=== PATIENT | male | born 1940 | race Caucasian/White ===

== ENCOUNTER → 2016-07-10 | Outpatient (REF) | payer MEDICARE ==
[2016-07-10 12:05] LABS: ALBUMIN/GLOBULIN RATIO 1.21 (1.00-1.93); ALKALINE PHOSPHATASE 64 U/L (45-117); ALT/SGPT 24 U/L (12-78); ANION GAP 8 MEQ/L (8-16); AST/SGOT 15 U/L (15-37); BILIRUBIN,TOTAL 0.6 MG/DL (0.2-1.0); BLOOD UREA NITROGEN 17 MG/DL (7-18); CARBON DIOXIDE LEVEL 29 MEQ/L (21-32); CHLORIDE LEVEL 103 MEQ/L (98-107); CHOLESTEROL LEVEL 183 MG/DL (<200); CREATININE FOR GFR 0.99 MG/DL (0.70-1.30); GLOMERULAR FILTRATION RATE > 60.0 (>42); GLUCOSE, FASTING 109 MG/DL (83-110); POTASSIUM SERUM 4.2 MEQ/L (3.5-5.1); SODIUM LEVEL 140 MEQ/L (136-145); TOTAL PROTEIN 7.3 GM/DL (6.4-8.2); TRIGLYCERIDES LEVEL 79 MG/DL (<150)
== END ==
LOC: M SFHCLERA 08:23
PROVIDERS: ATTEND Physician Assistant
DX: I10 Essential (primary) hypertension (principal); R73.01 Impaired fasting glucose; E78.2 Mixed hyperlipidemia; N52.8 Other male erectile dysfunction; E03.9 Hypothyroidism, unspecified
CPT/HCPCS: 80053; 80061; 83036; 84443; G0103

== ENCOUNTER → 2016-12-17 | Outpatient (REF) | payer MEDICARE ==
[2016-12-17 11:48] LABS: MEAN CORPUSCULAR HEMOGLOBIN 30.9 pg (27.0-33.0); MEAN CORPUSCULAR HGB CONC 34.7 g/dl (32.0-36.5); MEAN CORPUSCULAR VOLUME 89.1 fl (80.0-96.0); RED CELL DISTRIBUTION WIDTH 12.8 % (11.5-14.5); WHITE BLOOD COUNT 5.3 K/mm3 (4.0-10.0)
[2016-12-17 11:58] LABS: ALBUMIN 3.7 GM/DL (3.2-5.2); ALBUMIN/GLOBULIN RATIO 1.06 (1.00-1.93); ALKALINE PHOSPHATASE 57 U/L (45-117); ALT/SGPT 27 U/L (12-78); ANION GAP 5 MEQ/L (8-16); AST/SGOT 14 U/L (15-37); BILIRUBIN,TOTAL 0.5 MG/DL (0.2-1.0); BLOOD UREA NITROGEN 14 MG/DL (7-18); CALCIUM LEVEL 8.9 MG/DL (8.8-10.2); CARBON DIOXIDE LEVEL 30 MEQ/L (21-32); CHLORIDE LEVEL 105 MEQ/L (98-107); CHOLESTEROL LEVEL 180 MG/DL (<200); CREATININE FOR GFR 1.03 MG/DL (0.70-1.30); GLOMERULAR FILTRATION RATE > 60.0 (>42); GLUCOSE, FASTING 106 MG/DL (83-110); POTASSIUM SERUM 4.5 MEQ/L (3.5-5.1); SODIUM LEVEL 140 MEQ/L (136-145); TOTAL PROTEIN 7.2 GM/DL (6.4-8.2); TRIGLYCERIDES LEVEL 87 MG/DL (<150)
== END ==
LOC: M SFHCLERA 08:03
PROVIDERS: ATTEND Physician Assistant
DX: I10 Essential (primary) hypertension (principal); R73.01 Impaired fasting glucose; E78.2 Mixed hyperlipidemia; E03.9 Hypothyroidism, unspecified

== ENCOUNTER 2018-06-10 11:16 | Inpatient (IN) | payer MEDICARE ==
[2018-06-10] VITALS (9 sets, daily range): BP systolic 131–145; BP diastolic 62–73; O2SAT 92–97
[~2018-06-10] VITALS: Ht 175.3 cm; Wt 88.8 kg
[2018-06-10] MEDS ORDERED: LEVO75TA4 PO (11:47)
[2018-06-10] MEDS ORDERED: CIAL5TAB (11:48)
[2018-06-10] MEDS ORDERED: TAMS1CAP17 PO (11:48)
[2018-06-10] MEDS ORDERED: AMLO5TAB6 PO (11:48)
[2018-06-10] MEDS ORDERED: PANT40TA3 PO (11:48)
[2018-06-10] MEDS ORDERED: SIMV40TA2 PO (11:48)
[2018-06-10] MEDS ORDERED: DULO1CAP3 PO (11:48)
[2018-06-10] MEDS ORDERED: ASPI81TA85 PO (11:48)
--- NOTE | 2018-06-10 11:49 | REP ---
CT Head without contrast HISTORY: Altered mental status COMPARISON: None Areas of decreased attenuation are present in the periventricular white matter. This represents small-vessel ischemic disease. There is no intraparenchymal hemorrhage, acute infarct, mass or midline shift. The ventricular system and cortical sulci are dilated consistent with minimal volume loss. There is no extra cerebral collection. There is no fracture. The visualized sinuses are clear. IMPRESSION: 1. Small vessel ischemic disease. 2. Minimal volume loss. Electronically Signed by Stephen Mcfarlane MD 06/10/2018 11:41 A
[2018-06-10 12:14] LABS: BASO % 0.4 % (0.0-1.0); EOS # 0.3 10^3/uL (0.0-0.50); EOS % 4.1 % (0.0-3.0); HEMATOCRIT 43.1 % (42.0-52.0); HEMOGLOBIN 14.9 g/dl (13.5-17.5); LYMPH # 1.6 10^3/uL (1.5-4.5); LYMPH % 22.3 % (24.0-44.0); MEAN CORPUSCULAR HEMOGLOBIN 29.9 pg (27.0-33.0); MEAN CORPUSCULAR HGB CONC 34.6 g/dl (32.0-36.5); MEAN CORPUSCULAR VOLUME 86.4 fl (80.0-96.0); MONO # 0.7 10^3/uL (0.0-0.8); MONO % 9.5 % (0.0-5.0); NEUTROPHILS # 4.5 10^3/uL (1.8-7.7); NEUTROPHILS % 63.3 % (36.0-66.0); PLATELET COUNT, AUTOMATED 210 10^3/uL (150-450); RED BLOOD COUNT 4.99 10^6/uL (4.30-6.10); WHITE BLOOD COUNT 7.2 10^3/uL (4.0-10.0)
[2018-06-10 12:26] LABS: PROTHROMBIN TIME 13.3 SECONDS (12.1-14.4)
[2018-06-10 12:27] LABS: PARTIAL THROMBOPLASTIN TIME 28.2 SECONDS (25.4-37.6)
[2018-06-10 12:42] LABS: BLOOD UREA NITROGEN 17 MG/DL (7-18); CALCIUM LEVEL 9.2 MG/DL (8.8-10.2); CARBON DIOXIDE LEVEL 28 MEQ/L (21-32); CHLORIDE LEVEL 96 MEQ/L (98-107); CPK CREATINE PHOSPHOKINASE 166 U/L (39-308); CREATININE FOR GFR 1.09 MG/DL (0.70-1.30); GLOMERULAR FILTRATION RATE > 60.0 (>42); GLUCOSE, FASTING 113 MG/DL (70-100); MB/CK RELATIVE INDEX 2.35 (< OR =4); POTASSIUM SERUM 3.8 MEQ/L (3.5-5.1); SODIUM LEVEL 134 MEQ/L (136-145); TROPONIN I < 0.02 NG/ML (< 0.10)
--- NOTE | 2018-06-10 13:39 | REP ---
PORTABLE CHEST X-RAY: Single view. HISTORY: CVA. COMPARISON CHEST X-RAY: March 12, 2015. FINDINGS: EKG monitoring electrodes overlie the chest. There is some linear fibrosis in the left lateral pleural angle. Heart is not enlarged. Pulmonary vasculature is not increased. The aorta is calcific. IMPRESSION: Minimal linear fibrosis left base laterally. Otherwise no acute disease. Electronically Signed by Christopher Keys MD 06/10/2018 05:05 P
[2018-06-10] MEDS ORDERED: ONDANSETRON 4MG/2ML VIAL (J2405) IV PRN (15:15)
[2018-06-10] MEDS ORDERED: ACETAMINOPHEN TAB 650MG DOSE (2X325MG) PO PRN (15:15)
--- NOTE | 2018-06-10 15:38 | REP ---
MR BRAIN WITHOUT CONTRAST: HISTORY: TIA. COMPARISON: CT 06/10/2018. Scattered punctate areas of increased signal intensity on T2-weighted images are present in the periventricular and subcortical white matter and nona. This represents small vessel ischemic disease. There is no intraparenchymal hemorrhage, infarct, mass or midline shift. The ventricular system and cortical sulci are dilated consistent with minimal volume loss. There is no extracerebral collection. The sinuses are clear. IMPRESSION: 1. Minimal small vessel ischemic disease. 2. Minimal volume loss. Electronically Signed by Stephen Mcfarlane MD 06/10/2018 03:41 P
[2018-06-10] MEDS: ASPIRIN 325 MG TAB PO SCH (16:42)
[2018-06-10] MEDS ORDERED: PROHANCE 279.3MG/ML 5ML VIAL (A9576) As Ordered ONE (17:29)
[2018-06-10] MEDS ORDERED: PROHANCE 279.3MG/ML 15ML VIAL (A9576) As Ordered ONE (17:30)
[2018-06-10 17:35] LABS: C REACTIVE PROTEIN QUANTITATIV < 0.30 MG/DL (0.00-0.30); CPK CREATINE PHOSPHOKINASE 195 U/L (39-308); MB/CK RELATIVE INDEX 2.82 (< OR =4); TROPONIN I < 0.02 NG/ML (< 0.10)
[2018-06-10 17:42] LABS: THYROID STIMULATING HORMONE 1.32 uIU/ML (0.358-3.740); THYROXINE (T4) 10.6 UG/DL (4.5-12.0)
--- NOTE | 2018-06-10 18:39 | HPE ---
DATE OF ADMISSION: 06/10/2018 PRIMARY CARE PROVIDER: Chandrakant Wells NEUROLOGIST: Dr. Ceja CHIEF COMPLAINT: Amnesia, aphasia. HISTORY OF THE PRESENT ILLNESS: This is a 78-year-old male patient with underlying medical history of gastroesophageal reflux disease (GERD), hypothyroidism, hypertension, dyslipidemia, erectile dysfunction, obstructive sleep apnea, depression, presented this morning. The patient was doing woodwork and also going to the [facility] to do a workout but was noted that he was not able to remember things, having trouble talking to his friends, and almost did not remember his 's name but knows that the person is his but cannot express her name. Symptoms started around 9:30 in the morning, subsequently was encouraged by patient's to come to the emergency room. Patient reported mild left-sided eye and frontal headache, worse with sitting up, relieved with lying down and no other complaints. No vision change. Mild cough. Patient reported coughing also makes the headache worse. Denies any chest pain, pressure, discomfort. No other focal neurological deficit. No vision change, hearing change. No trouble swallowing. He is almost back to baseline with only minimum headache when sitting up. ALLERGIES: No known drug allergies. PAST MEDICAL HISTORY: See above. PAST SURGICAL HISTORY: Inguinal hernia repair times two. SOCIAL HISTORY: Quit smoking 15 years ago, one pack per day for 18 years. Drinks one vodka per day but has never had a problem with withdrawal in the past. No illicit drug use. FAMILY HISTORY: Noncontributory. Does not remember his family history. REVIEW OF SYSTEMS: Negative except for those mentioned in the history of the present illness. HOME MEDICATIONS: - Norvasc 5 mg by mouth daily - aspirin 81 mg by mouth daily - duloxetine 60 mg by mouth daily - Synthroid 75 mcg by mouth daily - Protonix 40 mg by mouth daily - Zocor 40 mg by mouth nightly - Flomax 0.8 mg by mouth daily PHYSICAL EXAMINATION: VITAL SIGNS: Temperature 98.3, pulse 76, respirations 17, blood pressure 144/70, pulse oximetry 97% on room air. GENERAL: Patient alert, comfortable, in no acute distress. HEENT: Normocephalic, atraumatic. PULMONARY: Bilaterally clear. CARDIAC: Regular, S1, S2. ABDOMEN: Soft, nontender. Positive bowel sounds. EXTREMITIES: No clubbing, cyanosis, or edema. NEUROLOGIC: Cranial nerves II-XII grossly intact. Bilateral upper and lower extremities 5/5 strength. Sensation to light touch intact, iajzsy-[id number] bilaterally intact. No focal neurological deficit appreciated. LABORATORY: WBC 7.2, hemoglobin and hematocrit 14.9 over 43.1, platelets 120. Chemistry: Sodium 134, potassium 3.8, chloride 96, bicarbonate 28, BUN 17, creatinine 1.09. Cardiac enzymes negative times two. CRP negative. TSH within normal limits. ASSESSMENT AND PLAN: This is a 78-year-old male patient with underlying medical history of gastroesophageal reflux disease, hypothyroidism, hypertension, dyslipidemia, erectile dysfunction, questionable obstructive sleep apnea, depression, presented with aphasia, questionable amnesia, likely secondary to transient ischemic attack (TIA). PROBLEMS: 1. Aphasia, questionable amnesia. Likely secondary to TIA. Case discussed with Dr. Ceja, neurologist. Escalate aspirin to 325 mg. Continue statin. Monitor blood pressure, permissive hypertension. Holding Norvasc at this time. Followup CRP, ESR, MRI of the brain, MRA of the brain, MRA of the neck, echocardiogram, neurologic checks, serial cardiac enzymes. Further recommendation as per neurology. Physical therapy has been ordered. 2. Hypertension. Permissive hypertension. Holding Norvasc. Will monitor clinically. 3. Obstructive sleep apnea. Obstructive sleep apnea (JANETT) protocol. Patient not on continuous positive airway pressure (CPAP) at home. 4. Gastroesophageal reflux disease. Continue proton pump inhibitor (PPI). 5. Patient drinks alcohol, one vodka per day. No history of withdrawal but will monitor clinically. Thiamine, folate, multivitamin. 6. Deep vein thrombosis (DVT) prophylaxis. Heparin subcu. 7. Depression. Continue current medication. DISPOSITION: Pending clinical improvement, will likely discharge in the next 24-48 hours.
--- NOTE | 2018-06-10 19:43 | REPVR ---
EXAM: MR Angiography Neck Without and With Contrast EXAM DATE/TIME: 06/10/2018 5:43 PM CLINICAL HISTORY: 78 years old, male; Signs and symptoms; Memory loss; Type not specified; Additional info: CVA TECHNIQUE: Magnetic resonance angiography images of the neck without and with intravenous contrast. COMPARISON: MRA BRAIN W/O CONTRAST 06/10/2018 2:39 PM FINDINGS: Right common carotid artery: Normal. No significant stenosis. No dissection or occlusion. Right internal carotid artery: Normal. Extracranial segment is patent with no significant stenosis. No dissection or occlusion. Right external carotid artery: Normal. No significant stenosis. No dissection or occlusion. Right vertebral artery: Normal. No significant stenosis. No dissection or occlusion. Left common carotid artery: Normal. No significant stenosis. No dissection or occlusion. Left internal carotid artery: Normal. Extracranial segment is patent with no significant stenosis. No dissection or occlusion. Left external carotid artery: Normal. No significant stenosis. No dissection or occlusion. Left vertebral artery: Left vertebral artery demonstrates heterogeneous multifocal moderate to severe irregular stenosis along its entire course. Findings are nonspecific and could reflect severe atherosclerotic disease, vasculitis, dissection, or other etiologies. Clinical correlation recommended. IMPRESSION: Left vertebral artery demonstrates heterogeneous multifocal moderate to severe irregular stenosis along its entire course. Findings are nonspecific and could reflect severe atherosclerotic disease, vasculitis, dissection, or other etiologies. Clinical correlation recommended. COMMENT: Reference per NASCET criteria for degree of stenosis: Mild: <50% stenosis. Moderate: 50-69% stenosis. Severe: 70-94% stenosis. Near occlusion: 95-99% stenosis. Electronically signed by: Maximiliano Ray On 06/10/2018 19:42:33 PM
[2018-06-10] MEDS: DOCUSATE SODIUM 100 MG CAP PO SCH (20:30)
[2018-06-10] MEDS: SIMVASTATIN 40 MG TAB PO SCH (20:30)
[2018-06-10] MEDS: HEPARIN SOD (PORCINE) 5000 UNITS/ML VIAL SC SCH (20:30)
--- NOTE | 2018-06-10 21:56 | REP ---
MRA BRAIN WITHOUT CONTRAST: HISTORY: TIA. 3D TOF MR angiography was performed at the level of the [place]. There is no aneurysm, arteriovenous malformation or atherosclerotic lesion. There is origin of the right posterior cerebral artery. Major intracranial vessels are patent. The right vertebral artery is dominant. The left vertebral artery is very hypoplastic. IMPRESSION: Normal MRA brain. Electronically Signed by Stephen Mcfarlane MD 06/11/2018 08:32 A
[2018-06-10 23:45] LABS: CPK CREATINE PHOSPHOKINASE 196 U/L (39-308); MB/CK RELATIVE INDEX 2.04 (< OR =4); TROPONIN I < 0.02 NG/ML (< 0.10)
[2018-06-11] VITALS (16 sets, daily range): BP systolic 112–159; BP diastolic 65–79; O2SAT 92–95
[2018-06-11 05:14] LABS: HEMATOCRIT 40.2 % (42.0-52.0); HEMOGLOBIN 13.7 g/dl (13.5-17.5); MEAN CORPUSCULAR HEMOGLOBIN 29.7 pg (27.0-33.0); MEAN CORPUSCULAR HGB CONC 34.1 g/dl (32.0-36.5); MEAN CORPUSCULAR VOLUME 87.2 fl (80.0-96.0); PLATELET COUNT, AUTOMATED 205 10^3/uL (150-450); RED BLOOD COUNT 4.61 10^6/uL (4.30-6.10)
[2018-06-11 05:43] LABS: BLOOD UREA NITROGEN 19 MG/DL (7-18); CALCIUM LEVEL 8.8 MG/DL (8.8-10.2); CARBON DIOXIDE LEVEL 29 MEQ/L (21-32); CHLORIDE LEVEL 102 MEQ/L (98-107); CHOLESTEROL LEVEL 187 MG/DL (<200); CHOLESTEROL RISK RATIO 3.169 (<5); CREATININE FOR GFR 1.18 MG/DL (0.70-1.30); GLOMERULAR FILTRATION RATE > 60.0 (>42); GLUCOSE, FASTING 116 MG/DL (70-100); HDL CHOLESTEROL 59 MG/DL (>40); LDL CHOLESTEROL 107 MG/DL (<100); MAGNESIUM LEVEL 2.2 MG/DL (1.8-2.4); NON-HDL-C 128 MG/DL; POTASSIUM SERUM 4.3 MEQ/L (3.5-5.1); SODIUM LEVEL 137 MEQ/L (136-145); TRIGLYCERIDES LEVEL 104 MG/DL (<150)
[2018-06-11] MEDS: LEVOTHYROXINE 75MCG TABLET (0.075MG) PO SCH (05:46)
[2018-06-11] MEDS ORDERED: ASPIRIN 81 MG ENTERIC TAB PO SCH (09:00)
--- NOTE | 2018-06-11 09:00 | ECGEPIP ---
Stationary ECG Study [facility] - ED Test Date: 2018-06-10 Pat Name: KARISSA POWELL Department: Room: - Gender: M Cashier Wrapper: desiree : 1940 Requested By: Michele Kelly Order Number: [id number] Reading MD: Bebe Quintana Measurements Intervals [place] Rate: 78 P: 58 NV: 196 QRS: -2 QRSD: 102 T: 32 QT: 385 QTc: 440 Interpretive Statements SINUS RHYTHM WITH OCCASIONAL VENTRICULAR PREMATURE COMPLEXES POSSIBLE INFERIOR MYOCARDIAL INFARCTION, PROBABLY OLD NSTTW ABNORMALITY SIMILAR 03/12/15 Electronically Signed On 06-11-2018 8:59:54 EST by Bebe Quintana
[2018-06-11] MEDS ORDERED: ISOVUE-370 76% 100ML VIAL (Q9967) As Ordered ONE (09:41)
[2018-06-11] MEDS: TAMSULOSIN 0.4 MG CAP PO SCH (10:08)
[2018-06-11] MEDS: ASPIRIN 325 MG TAB PO SCH (10:08)
[2018-06-11] MEDS: DOCUSATE SODIUM 100 MG CAP PO SCH ×2 (10:09→20:30)
[2018-06-11] MEDS: PANTOPRAZOLE 40MG TAB (PROTONIX) PO SCH (10:09)
[2018-06-11] MEDS: THIAMINE 100 MG TAB PO SCH (10:09)
[2018-06-11] MEDS: FOLIC ACID 1 MG TAB PO SCH (10:09)
[2018-06-11] MEDS: MULTIVITAMINS/MINERALS THERAP 1 TAB PO SCH (10:09)
[2018-06-11] MEDS: DULoxetine 30 MG CAP (CYMBALTA) PO SCH (10:09)
[2018-06-11] MEDS: HEPARIN SOD (PORCINE) 5000 UNITS/ML VIAL SC SCH ×2 (10:10→20:30)
[2018-06-11] MEDS ORDERED: SLF 3 ML SYR IV PRN (11:00)
--- NOTE | 2018-06-11 11:16 | REP ---
CT ANGIO NECK: HISTORY: Vertebral artery stenosis. CONTRAST: Isovue 370, 75 mL. Calcified atherosclerotic plaques are present at the distal right common carotid artery and origin of the right internal carotid artery. There is no significant stenosis at the origin of the right internal carotid artery. The origin of the right external carotid artery is normal. Calcified atherosclerotic plaques are present at the distal left common carotid artery and origin of the left internal carotid artery. There is moderate stenosis of 50% of the distal left common carotid artery. There is mild stenosis of 10% of the left internal carotid artery at its origin. There is mild stenosis of 25% of the left internal carotid artery 6 mm from its origin. There origin of the left external carotid artery is normal. The vertebral arteries are patent. The right vertebral artery is dominant. There are areas of at least mild stenosis throughout the course of the left internal carotid artery. Calcified atherosclerotic plaques are present in the cavernous and supraclinoid internal carotid arteries. These produce mild stenosis. Calcified atherosclerotic plaques are present at the origins of the subclavian arteries. There is no significant stenosis. The origins of the remaining great vessels are normal. IMPRESSION: 1. There are calcified atherosclerotic plaques at the distal right common carotid artery and origin of the right internal carotid artery. There is no significant stenosis. 2. Moderate stenosis of 50% of the distal left common carotid artery. 3. Mild stenosis of 10% of the left internal carotid artery at its origin. There is mild stenosis of 25% of the left internal carotid artery 6 mm from its origin. 4. There are areas of at least mild stenosis throughout the course of the left vertebral artery. This is better seen in the MRA carotid examination date 06/10/2018. Electronically Signed by Stephen Mcfarlane MD 06/11/2018 11:26 A
[2018-06-11] MEDS: CLOPIDOGREL 75 MG TAB PO SCH (13:27)
[2018-06-11] MEDS: SLF 3 ML SYR IV SCH ×2 (14:00→20:00)
--- NOTE | 2018-06-11 15:15 | CR ---
DATE OF CONSULTATION: 06/10/2018 REFERRING PROVIDER: Dr. Darlene Velazquez HISTORY OF PRESENT ILLNESS: Higinio Rg is a 78-year-old male with past medical history significant for hypothyroidism, hyperlipidemia, depression, presenting with a chief complaint of having a temporary episode of inability to recall people's names. The patient states that he could remember everything except what the name of his was, what the name of his friends, close workers were. The patient states that the symptoms lasted for a little over an hour and then self-resolved. The patient did have a head CT, which showed minimal small-vessel ischemic disease. MRI of the brain was obtained, which showed minimal volume, loss minimal small-vessel ischemic disease. Was negative for any acute stroke. MR angiogram of the head was normal. The MR angiogram of the neck did reveal vertebral artery significant atherosclerosis. The patient at baseline takes aspirin 81 mg daily. His aspirin was increased to 325 mg during the emergency room (ER) stay. He is maintained on Zocor 40 mg. He denies any headache, change in vision, numbness, weakness, ataxia, dysarthria, dysphagia aphasia, dysnomia. The patient states that he has never had a transient ischemic attacks (TIA) or stroke in the past. REVIEW OF SYSTEMS: A 14-point review of systems obtained and is negative except as per history of present illness (HPI). Past medical, surgical, family, social history reviewed and is negative. SOCIAL HISTORY: The patient denies use of any tobacco, alcohol, or illicit drugs. FAMILY HISTORY: Noncontributory. ALLERGIES: No known drug allergies. HOME MEDICATIONS: j - aspirin 81 mg by mouth daily - Zocor 40 mg by mouth daily - Synthroid 75 mcg by mouth daily - folic acid 1 mg by mouth daily - thiamine 100 by mouth daily - Flomax 0.8 mg daily - Protonix 40 mg by mouth daily - Cymbalta 60 mg daily PAST MEDICAL HISTORY: 1. Hyperlipidemia. 2. Hypothyroidism. 3. BPH. 4. Gastroesophageal reflux disease. 5. Depression and anxiety. PAST SURGICAL HISTORY: None. PHYSICAL EXAMINATION: Blood pressure 140/90, pulse rate 75, respiratory rate is 18, temperature is 98 degrees Fahrenheit, oxygenation is 97% on room air. The patient is awake, alert, oriented to person, place, and time. Speech, language, comprehension, and repetition are intact. Pupils are 3 mm round, reactive to light. Extraocular movements are intact in all directions without any nystagmus. Sensation in V1, V2, V3 is intact to light touch. No facial asymmetry to activation. Palate elevates symmetrically. Tongue is midline. No weakness of sternocleidomastoids bilaterally. Hearing is subjectively equal to finger rub. There is no aphasia. There is no pronator drift. Strength is 5/5, including bilateral deltoids, biceps, triceps, handgrip, iliopsoas, quadriceps, anterior tibialis. Deep tendon reflexes are 2's in the upper extremities, reduced in the lower extremities. Absent Babinski signs. Sensory is intact to light touch in all four extremities. Coordination: Normal kospur-yr-gfrt without any signs of gross ataxia or dysmetria. ASSESSMENT: A 78-year-old male with transient dysnomia/aphasia, likely transient ischemic attacks (TIA). PLAN: Increase aspirin to 325 mg by mouth daily. Continue Zocor 40 mg by mouth daily. Obtain MR angiogram carotids. Continue telemetry monitoring. Physical therapy (PT), occupational therapy (OT) evaluation. History obtained both the patient and the patient's . Followup in [facility] neurology office after 24-hour observation admission.
--- NOTE | 2018-06-11 19:46 | IPNPDOC ---
Text Note Date of Service The patient was seen on 06/11/18. NOTE Back to baseline. no new complaint. denied chest pain abd pain. GENERAL: Patient alert, comfortable, in no acute distress. HEENT: Normocephalic, atraumatic. PULMONARY: Bilaterally clear. CARDIAC: Regular, S1, S2. ABDOMEN: Soft, nontender. Positive bowel sounds. EXTREMITIES: No clubbing, cyanosis, or edema. NEUROLOGIC: Cranial nerves II-XII grossly intact. Bilateral upper and lower extremities 5/5 strength. Sensation to light touch intact, lmelmq-cm-[id number] bilaterally intact. No focal neurological deficit appreciated. ASSESSMENT AND PLAN: This is a 78-year-old male patient with underlying medical history of gastroesophageal reflux disease, hypothyroidism, hypertension, dyslipidemia, erectile dysfunction, questionable obstructive sleep apnea, depression, presented with aphasia, questionable amnesia, likely secondary to transient ischemic attack (TIA). PROBLEMS: 1. Aphasia, questionable amnesia. Likely secondary to TIA 2/2 vetebral artery stenosis. Case discussed with Dr. Ceja, neurologist. d/w Vascular, asa 81,and plavix 75mg. vascular consulted. Continue statin. Monitor blood pressure, permissive hypertension. Holding Norvasc at this time. Followup CRP, ESR, MRI of the brain, MRA of the brain, MRA of the neck, echocardiogram appreciated neurologic checks, serial cardiac enzymes neg. Further recommendation as per neurology, vascular. Physical therapy has been ordered. 2. Hypertension. Permissive hypertension. Holding Norvasc. Will monitor clinically. 3. Obstructive sleep apnea. Obstructive sleep apnea (JANETT) protocol. Patient not on continuous positive airway pressure (CPAP) at home. 4. Gastroesophageal reflux disease. Continue proton pump inhibitor (PPI). 5. Patient drinks alcohol, one vodka per day. No history of withdrawal but will monitor clinically. Thiamine, folate, multivitamin. 6. Deep vein thrombosis (DVT) prophylaxis. Heparin subcu. 7. Depression. Continue current medication. DISPOSITION: Vascular consult, will likely discharge in the next 24 hours. VS,Drebone, I+O VS, Fishbone, I+O Laboratory Tests 06/11/18 05:01 Red Blood Count 4.61, Mean Corpuscular Volume 87.2, Mean Corpuscular Hemoglobin 29.7, Mean Corpuscular Hemoglobin Concent 34.1, Red Cell Distribution Width 12.7 Vital Signs Date Time Temp Pulse Resp B/P (MAP) Pulse Ox O2 Delivery O2 Flow Rate FiO2 06/11/18 16:00 97.5 75 18 141/69 (93) 94 Room Air I&O- Last 24 Hours up to 6 AM 06/11/18 06:00 Intake Total 120 ml Output Total 750 ml Balance -630 ml TRACY RUIZ MD Jun 11, 2018 19:46
[2018-06-11] MEDS: SIMVASTATIN 40 MG TAB PO SCH (20:30)
[2018-06-12] VITALS (12 sets, daily range): BP systolic 135–160; BP diastolic 78–85; O2SAT 92–96
[2018-06-12 05:52] LABS: HEMATOCRIT 38.6 % (42.0-52.0); MEAN CORPUSCULAR HEMOGLOBIN 29.1 pg (27.0-33.0); MEAN CORPUSCULAR HGB CONC 33.7 g/dl (32.0-36.5); MEAN CORPUSCULAR VOLUME 86.5 fl (80.0-96.0); PLATELET COUNT, AUTOMATED 187 10^3/uL (150-450); RED BLOOD COUNT 4.46 10^6/uL (4.30-6.10); WHITE BLOOD COUNT 5.4 10^3/uL (4.0-10.0)
[2018-06-12] MEDS: SLF 3 ML SYR IV SCH (06:00)
[2018-06-12 06:01] LABS: BLOOD UREA NITROGEN 19 MG/DL (7-18); CALCIUM LEVEL 8.6 MG/DL (8.8-10.2); CARBON DIOXIDE LEVEL 27 MEQ/L (21-32); CHLORIDE LEVEL 105 MEQ/L (98-107); CREATININE FOR GFR 1.06 MG/DL (0.70-1.30); GLOMERULAR FILTRATION RATE > 60.0 (>42); GLUCOSE, FASTING 118 MG/DL (70-100); MAGNESIUM LEVEL 2.1 MG/DL (1.8-2.4); SODIUM LEVEL 140 MEQ/L (136-145)
[2018-06-12] MEDS: LEVOTHYROXINE 75MCG TABLET (0.075MG) PO SCH (06:40)
[2018-06-12] MEDS: DOCUSATE SODIUM 100 MG CAP PO SCH (09:00)
[2018-06-12] MEDS ORDERED: ASPIRIN 81 MG ENTERIC TAB PO SCH (09:00)
[2018-06-12] MEDS: DULoxetine 30 MG CAP (CYMBALTA) PO SCH (09:09)
[2018-06-12] MEDS: TAMSULOSIN 0.4 MG CAP PO SCH (09:09)
[2018-06-12] MEDS: THIAMINE 100 MG TAB PO SCH (09:09)
[2018-06-12] MEDS: FOLIC ACID 1 MG TAB PO SCH (09:09)
[2018-06-12] MEDS: MULTIVITAMINS/MINERALS THERAP 1 TAB PO SCH (09:09)
[2018-06-12] MEDS: CLOPIDOGREL 75 MG TAB PO SCH (09:10)
[2018-06-12] MEDS: PANTOPRAZOLE 40MG TAB (PROTONIX) PO SCH (09:10)
[2018-06-12] MEDS: HEPARIN SOD (PORCINE) 5000 UNITS/ML VIAL SC SCH (09:11)
[2018-06-12] MEDS ORDERED: CLOP75TA2 PO (09:34)
--- NOTE | 2018-06-12 13:49 | ECHO ---
DATE OF PROCEDURE: 06/10/2018 REFERRING PROVIDER: Dr. Darlene Velazquez PATIENT LOCATION: Room ED #4 REASON FOR ECHOCARDIOGRAM: Transient ischemic attack (TIA). 2D MEASUREMENTS: IVS: 1.0 cm LV: 4.0 cm LVPW: 1.0 cm LA: 3.6 cm Aorta: 3.5 cm IVC: 2.2 cm DOPPLER MEASUREMENTS: Peak velocity across the aortic valve: 1.5 m/s Peak velocity across the LVOT: 0.9 m/s Mitral E: 0.77 Mitral A: 0.96 with a ratio of 0.8 2D COMMENTS: 1. Normal left ventricular size, wall thickness, and normal global left ventricular systolic function. The estimated global left ventricular systolic ejection fraction is 60-65%. 2. Normal left atrium. Normal right atrium and right ventricle. 3. The atrial septum appeared to be normal without evidence of defect or shunt. 4. Normal aortic root. 5. No pericardial effusion seen. 6. Minimally calcified aortic valve with normal leaflet excursion. Minimally calcified mitral annulus with normal anterior mitral valve leaflet motion. Normal tricuspid valve. 7. The inferior vena cava is mildly enlarged, central venous pressure mildly elevated. Doppler, it detects mild mitral regurgitation. Abnormal relaxation pattern was noted across the mitral valve leaflets as well as the mitral valve annulus consistent with delayed relaxation. IMPRESSION: 1. Normal global left ventricular systolic function. There were features of left ventricular diastolic dysfunction manifested by abnormal relaxation. 2. Aortic valve sclerosis without stenosis or aortic regurgitation. 3. Mitral annulus calcification with mild mitral regurgitation. 4. There are some features of elevated central venous pressure, the inferior vena cava was mildly enlarged.
--- NOTE | 2018-06-12 15:55 | DSES ---
DATE OF ADMISSION: 06/10/2018 DATE OF DISCHARGE: 06/12/2018 PRIMARY CARE PROVIDER: Chandrakant Wells M.D. NEUROLOGIST: Dr. Ceja VASCULAR SURGEON: Dr. Edilson Dominguez FINAL DIAGNOSES: 1. 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 2. Hypertension. 3. Obstructive sleep apnea not on continuous positive airway pressure (C-PAP). 4. Gastroesophageal reflux disease (GERD). 5. History of alcohol use. 6. Depression. HISTORY OF PRESENT ILLNESS: This is a 78-year-old male patient with underlying medical history of gastroesophageal reflux disease (GERD), hypothyroidism, hypertension, dyslipidemia, erectile dysfunction, obstructive sleep apnea, depression, presented this morning. Patient was doing woodwork and also going to [facility] to work out. He noted that he was not able to remember things, had trouble with people's names. He recognized the people, but had trouble saying people's names. Almost did not remember his 's name. Had difficulty expressing himself. Symptoms started about 9:30 in the morning, subsequently was encouraged by patient's to present to the emergency room. Patient reported mild left-sided headache, frontal and periocular headache, worsened with sitting up. Symptoms relieved with lying down. Symptoms had almost all resolved by the time patient arrived at the emergency room. No vision change. Mild cough. Patient reported coughing makes the headache worse. Nonproductive. Denied any chest pain, pressure, discomfort. No other focal neurological deficits. No vision change, hearing change. No trouble swallowing. Currently back to baseline. HOSPITAL COURSE: Patient admitted to the hospital. Neurology was consulted, was thought to have transient ischemic attack (TIA). Patient's aspirin was initially increased to 325. MRI of the brain. MRA of the brain. MRA of the carotid was done, showing vertebral artery stenosis. Subsequently, vascular surgeon was consulted. Patient's antiplatelet agent was changed to baby aspirin and Plavix 75 mg. Patient's statin was continued. Patient currently is back to baseline, tolerating oral, in no acute distress, ready to be discharged for further followup as outpatient. VITAL SIGNS: Temperature 98.2, pulse 66, respirations 18, blood pressure 160/85, pulse oximetry 95% on room air. LABORATORY: WBC 5.4, hemoglobin and hematocrit (H and H) 13 and 38.6, platelets 187. Chemistry: Sodium 140, potassium 4, chloride 105, bicarbonate 27, BUN 19, creatinine 1.06. Cardiac enzymes negative times three. PHYSICAL EXAMINATION: GENERAL: Patient alert, comfortable, in no acute distress. HEENT: Normocephalic, atraumatic. PULMONARY: Bilateral clear. CARDIAC: Regular. S1, S2. ABDOMEN: Soft, nontender. Positive bowel sounds. EXTREMITIES: No clubbing, cyanosis or edema. NEUROLOGIC: No focal deficit. Cranial nerves II-XII grossly intact. Motor strength bilateral upper and lower 5/5. Sensation to light touch intact bilateral. Fmnfma-wn-xrys intact bilateral. DISCHARGE MEDICATIONS: - Plavix 75 mg by mouth daily - aspirin 81 mg by mouth daily - Norvasc 5 mg by mouth daily - duloxetine 360 mg by mouth daily - Synthroid 75 mcg by mouth daily - Protonix 40 mg by mouth daily - simvastatin 40 mg by mouth at bedtime - Flomax 0.8 mg by mouth daily DISCHARGE INSTRUCTIONS: 1. Please see primary care provider in seven days. 2. Please see neurologist in two weeks. 3. Please see vascular surgeon, Dr. Dominguez, in four weeks. 4. Please return to hospital as soon as possible if symptoms worsen.
== END 2018-06-12 10:41 | disposition home or self-care (01) | DRG 71 ==
LOC: M ED 11:16 → M ED INP 15:12 → M PCU 18:27
PROVIDERS: ADMIT Hospitalist; ATTEND Hospitalist
DX: I67.2 Cerebral atherosclerosis (principal); R47.01 Aphasia; G45.9 Transient cerebral ischemic attack, unspecified; R41.3 Other amnesia; K21.9 Gastro-esophageal reflux disease without esophagitis; E03.9 Hypothyroidism, unspecified; I10 Essential (primary) hypertension; F41.9 Anxiety disorder, unspecified; E78.5 Hyperlipidemia, unspecified; N52.9 Male erectile dysfunction, unspecified; G47.33 Obstructive sleep apnea (adult) (pediatric); F32.9 Major depressive disorder, single episode, unspecified; Z87.891 Personal history of nicotine dependence; Z79.82 Long term (current) use of aspirin; Z79.899 Other long term (current) drug therapy

== ENCOUNTER 2018-08-12 15:13 | Outpatient (RCR) | payer MEDICARE ==
[~2018-08-12 15:13] MED LIST: AMLO5TAB6 PO; ASPI81TA85 PO; CIAL5TAB; CLOP75TA2 PO; DULO1CAP3 PO; LEVO75TA4 PO; PANT40TA3 PO; SIMV40TA2 PO; TAMS1CAP17 PO
--- NOTE | 2018-08-12 17:53 | NUR ---
There was no indication of aspiration during the clinical assessment provided in outpatient therapy, and patient appears to be safe on a regular diet with thin liquids. ST recommended safe feeding strategies to decrease risk of aspiration and introduced exercises to start a HEP. However, based on the patient's description of coughing episodes while eating and drinking, ST recommends MBS to rule out silent aspiration. ST also recommends continued therapy for dysphagia management in order to provide education on GERD , implement a HEP to for laryngeal and BOT strengthening, and maximize patient safety during PO intake. Addendum: 08/12/18 at 1756 by ANGUS MOLINA Amended: Links added.
--- NOTE | 2018-08-18 17:03 | NUR ---
MBS assessment completed. There was no aspiration/penetration noted during the assessment. Patient's swallow is adequate for regular solid and thin liquid. ST will provide one follow up session to provide GERD/LPR education and protocol and safe feeding strategies to maximize safety during PO intake. Addendum: 08/18/18 at 1705 by ANGUS MOLINA Amended: Links added.
== END 2018-09-05 ==
LOC: M ST 15:13
PROVIDERS: ATTEND Family Medicine
DX: Z51.89 Encounter for other specified aftercare (principal); R13.10 Dysphagia, unspecified

== ENCOUNTER → 2018-08-18 | Outpatient (CLI) | payer MEDICARE ==
--- NOTE | 2018-08-18 21:48 | REP ---
COOKIE SWALLOW The procedure was performed under the direct supervision of Dr. Marroquin The procedure was performed with Dorinda Hartman from speech pathology present. 5 ml aliquots of thin, fruit and solid consistency barium was administered. There is no evidence of penetration or aspiration. The detailed report of this examination will be provided by speech pathology. 0.9 minutes of fluoroscopy time was utilized for this procedure. Reviewed by DORON Tolliver 08/18/2018 04:12 P Electronically Signed by Sylvester Marroquin MD 08/18/2018 09:40 P
== END ==
LOC: M ST 14:51
PROVIDERS: ATTEND Family Medicine
DX: R13.10 Dysphagia, unspecified (principal)

== ENCOUNTER → 2019-06-10 | Outpatient (CLI) | payer MEDICARE ==
[~2019-06-10] MED LIST changes: -DULO1CAP3 PO; +DULO1CAP6 PO; -SIMV40TA2 PO; +SIMV40TA20 PO
--- NOTE | 2019-06-10 14:54 | REP ---
Clinical: Cough . Comparison: 03/12/2015 . Technique: PA and lateral. Findings: The mediastinum and cardiac silhouette are normal. The lung barreto are clear and without acute consolidation, effusion, or pneumothorax. The skeletal structures are intact and normal. Impression: 1. No acute cardiopulmonary process. Electronically Signed by Daniel Decker MD 06/10/2019 02:46 P
== END ==
LOC: M WUC 14:27
PROVIDERS: ATTEND Family Medicine
DX: R05 Cough (principal)

== ENCOUNTER → 2020-05-01 | Outpatient (CLI) | payer MEDICARE ==
[~2020-05-01] MED LIST changes: +AMLO1TAB24 PO; -AMLO5TAB6 PO; -ASPI81TA85 PO; +ASPI81TA86 PO; +PANT40TA29 PO; -PANT40TA3 PO
--- NOTE | 2020-05-01 10:09 | REP ---
INDICATION: PAIN IN LEFT LOWER LEG- PT TO WAIT COMPARISON: None. TECHNIQUE: Pritchard scale and color Doppler evaluation left lower extremity using linear high frequency transducer. FINDINGS: Ultrasound examination of the left lower extremity deep venous structures from the common femoral vein to the popliteal vein demonstrates normal compressibility flow and wave patterns in response to respiration and augmentation. There is no evidence for deep venous thrombosis. IMPRESSION: No evidence for deep venous thrombosis. <Electronically signed by Daniel Decker > 05/01/20 [id number]
[2020-05-01 11:00] LABS: CRYSTALS, BODY FLUID CA PYROPHOSPHATE (NONE SEEN); SOURCE, BODY FLUID CRYSTALS LFT KNEE
[2020-05-01 11:04] LABS: SOURCE, BODY FLUID GLUCOSE LFT KNEE
[2020-05-01 11:11] LABS: SOURCE, BODY FLUID LFT KNEE; SYNOVIAL FLUID COLOR RED (YELLOW)
[2020-05-01 11:31] LABS: BASO % 0.5 % (0.0-1.0); EOS # 0.4 10^3/uL (0.0-0.5); EOS % 5.4 % (0.0-3.0); HEMATOCRIT 43.2 % (42.0-52.0); HEMOGLOBIN 14.2 g/dl (13.5-17.5); LYMPH # 1.8 10^3/uL (1.5-5.0); MEAN CORPUSCULAR HEMOGLOBIN 29.1 pg (27.0-33.0); MEAN CORPUSCULAR HGB CONC 32.9 g/dl (32.0-36.5); MEAN CORPUSCULAR VOLUME 88.5 fl (80.0-96.0); MONO # 0.7 10^3/uL (0.0-0.8); MONO % 10.9 % (0.0-5.0); NEUTROPHILS # 3.5 10^3/uL (1.5-8.5); NEUTROPHILS % 54.7 % (36.0-66.0); PLATELET COUNT, AUTOMATED 238 10^3/uL (150-450); RED BLOOD COUNT 4.88 10^6/uL (4.30-6.10); WHITE BLOOD COUNT 6.4 10^3/uL (4.0-10.0)
[2020-05-01 11:42] LABS: BODY FLUID RHEUMATOID SCREEN POSITIVE (NEGATIVE)
[2020-05-01 11:43] LABS: MUCIN CLOT TEST NO CLOT (4+)
[2020-05-01 12:06] LABS: ERYTHROCYTE SEDIMENTATION RATE 11 mm/hr (0-20)
== END ==
LOC: M RAD 09:36
PROVIDERS: ATTEND Physician Assistant
DX: M79.605 Pain in left leg (principal)

== ENCOUNTER → 2021-06-19 | Outpatient (CLI) | payer MEDICARE | LOC: M SLEEP 20:00 | PROVIDERS: ATTEND Nurse Practitioner Adult Health | DX: G47.33 Obstructive sleep apnea (adult) (pediatric) (principal) ==

== ENCOUNTER → 2021-07-25 | Outpatient (CLI) | payer MEDICARE | LOC: M PLAIMG 13:32 | PROVIDERS: ATTEND Physician Assistant Surgical | DX: M25.78 Osteophyte, vertebrae (principal); M47.892 Other spondylosis, cervical region ==

== ENCOUNTER → 2021-08-24 | Outpatient (CLI) | payer MEDICARE | LOC: M SLEEP 08-24 20:00 | PROVIDERS: ATTEND Nurse Practitioner Adult Health | DX: G47.33 Obstructive sleep apnea (adult) (pediatric) (principal) ==

== ENCOUNTER → 2021-10-01 | Outpatient (CLI) | payer MEDICARE ==
[2021-10-01 13:06] LABS: PLATELET COUNT, AUTOMATED 216 10^3/uL (150-450)
[2021-10-01 13:18] LABS: INR 1.01; PROTHROMBIN TIME 13.7 SECONDS (12.7-14.5)
[2021-10-01 13:19] LABS: PARTIAL THROMBOPLASTIN TIME 28.8 SECONDS (25.9-37.0)
== END ==
LOC: M LAB 11:57
PROVIDERS: ATTEND Physician Assistant Surgical
DX: M47.892 Other spondylosis, cervical region (principal); Z79.01 Long term (current) use of anticoagulants

== ENCOUNTER → 2022-05-29 | Outpatient (CLI) | payer MEDICARE | LOC: M PLAIMG 12:52 | PROVIDERS: ATTEND Physician Assistant Surgical | DX: M25.572 Pain in left ankle and joints of left foot (principal) ==

== ENCOUNTER → 2023-03-19 | Outpatient (REF) | payer MEDICARE | LOC: M LAB REF 16:45 | PROVIDERS: ATTEND Family Medicine | DX: R41.3 Other amnesia (principal) ==

== ENCOUNTER → 2023-09-22 | Outpatient (CLI) | payer MEDICARE | LOC: M RAD 11:33 | PROVIDERS: ATTEND Surgery Vascular Surgery | DX: I65.22 Occlusion and stenosis of left carotid artery (principal) ==

== ENCOUNTER → 2023-12-09 | Outpatient (REF) | payer MEDICARE ==
[2023-12-09 17:32] LABS: RHEUMATOID FACTOR QUANT < 3.5 IU/ML (<14)
[2023-12-09 17:35] LABS: VITAMIN B12 LEVEL 373 PG/ML (211-911)
[2023-12-09 17:59] LABS: FOLATE 10.1 NG/ML (>5.4)
[2023-12-14 15:22] LABS: ANA SCREEN, IFA NEGATIVE (NEGATIVE)
== END ==
LOC: M LAB REF 16:26
PROVIDERS: ATTEND Family Medicine
DX: R53.83 Other fatigue (principal); R41.3 Other amnesia; K43.9 Ventral hernia without obstruction or gangrene; Z11.3 Encounter for screening for infections with a predominantly sexual mode of transmission; Z72.89 Other problems related to lifestyle

== ENCOUNTER → 2024-01-04 | Outpatient (CLI) | payer MEDICARE | LOC: M RAD 10:22 | PROVIDERS: ATTEND Family Medicine | DX: K43.9 Ventral hernia without obstruction or gangrene (principal) ==

== ENCOUNTER → 2024-02-11 | Outpatient (REF) | payer MEDICARE ==
[2024-02-11 14:24] LABS: FOLATE 12.8 NG/ML (>5.4)
[2024-02-16 11:51] LABS: VITAMIN E(ALPHA TOCOPHEROL) 14.1 mg/L (5.7-19.9); VITAMIN E(GAMMA TOCOPHEROL) 1.7 mg/L (<=4.3)
[2024-02-16 18:18] LABS: VITAMIN B6,PYRIDOXAL PHOSPHATE 11.5 ng/mL (2.1-21.7)
== END ==
LOC: M LAB REF 12:39
PROVIDERS: ATTEND Family Medicine
DX: R41.3 Other amnesia (principal); E53.8 Deficiency of other specified B group vitamins

== ENCOUNTER → 2024-02-11 | Outpatient (CLI) | payer MEDICARE | LOC: M PLAIMG 13:41 | PROVIDERS: ATTEND Psychiatry & Neurology Neurology | DX: G31.83 Neurocognitive disorder with Lewy bodies (principal); R41.3 Other amnesia ==

== ENCOUNTER → 2024-04-21 | Outpatient (CLI) | payer MEDICARE ==
[2024-04-21 08:58] LABS: BASO % 0.4 % (0.0-1.0); EOS # 0.4 10^3/uL (0.0-0.5); EOS % 5.9 % (0.0-3.0); HEMATOCRIT 43.1 % (42.0-52.0); HEMOGLOBIN 14.4 g/dl (13.5-17.5); LYMPH # 1.9 10^3/uL (1.5-5.0); LYMPH % 25.7 % (24.0-44.0); MEAN CORPUSCULAR HEMOGLOBIN 29.2 pg (27.0-33.0); MEAN CORPUSCULAR HGB CONC 33.4 g/dl (32.0-36.5); MEAN CORPUSCULAR VOLUME 87.4 fl (80.0-96.0); MONO # 0.7 10^3/uL (0.0-0.8); MONO % 9.3 % (2.0-8.0); NEUTROPHILS # 4.3 10^3/uL (1.5-8.5); NEUTROPHILS % 58.3 % (36.0-66.0); PLATELET COUNT, AUTOMATED 210 10^3/uL (150-450); RED BLOOD COUNT 4.93 10^6/uL (4.30-6.10); WHITE BLOOD COUNT 7.4 10^3/uL (4.0-10.0)
[2024-04-21 09:26] LABS: ALBUMIN 3.8 G/DL (3.2-5.2); ALKALINE PHOSPHATASE 60 U/L (40-129); ALT/SGPT 37 U/L (7.0-40); AST/SGOT 21 U/L (<34); BILIRUBIN,TOTAL 0.6 MG/DL (0.3-1.2); BLOOD UREA NITROGEN 22 MG/DL (9-23); CALCIUM LEVEL 9.8 MG/DL (8.3-10.6); CARBON DIOXIDE LEVEL 29 MMOL/L (20-31); CHLORIDE LEVEL 104 MMOL/L (98-107); CREATININE FOR GFR 0.94 MG/DL (0.70-1.30); GLOMERULAR FILTRATION RATE > 60.0 (>35); GLUCOSE, FASTING 111 MG/DL (74-106); POTASSIUM SERUM 4.2 MMOL/L (3.5-5.1); SODIUM LEVEL 138 MMOL/L (136-145); TOTAL PROTEIN 7.7 G/DL (5.7-8.2)
== END ==
LOC: M EKG 08:01
PROVIDERS: ATTEND Podiatrist
DX: M20.21 Hallux rigidus, right foot (principal); M79.671 Pain in right foot; I44.0 Atrioventricular block, first degree

== ENCOUNTER → 2024-08-23 | Outpatient (REF) | payer MEDICARE ==
[2024-08-23 19:49] LABS: SOURCE, BODY FLUID LFT ELBOW; SYNOVIAL FLUID COLOR RED (COLORLESS)
[2024-08-23 20:03] LABS: CRYSTALS, BODY FLUID NONE SEEN (NONE SEEN); SOURCE, BODY FLUID CRYSTALS LFT ELBOW
== END ==
LOC: M LAB REF 17:44
PROVIDERS: ATTEND Internal Medicine
DX: M70.32 Other bursitis of elbow, left elbow (principal)

== ENCOUNTER → 2024-08-23 | Outpatient (CLI) | payer MEDICARE | LOC: M WUC 13:15 | PROVIDERS: ATTEND Internal Medicine | DX: M70.22 Olecranon bursitis, left elbow (principal) ==

== ENCOUNTER → 2024-09-22 | Outpatient (CLI) | payer MEDICARE | LOC: M RAD 08:51 | PROVIDERS: ATTEND Physician Assistant | DX: I65.23 Occlusion and stenosis of bilateral carotid arteries (principal) ==

== ENCOUNTER 2024-12-23 09:33 | Day surgery (SDC) | payer MEDICARE ==
[~2024-12-23] VITALS: Ht 175.3 cm; Wt 86.0 kg
[~2024-12-23 09:33] MED LIST changes: +ASPI81TA26 PO; +DONE5TAB82 PO; +LIDOCAINE 2% 100 MG/5 ML SDV (FOR ANES.) As Ordered ONE; +MIDAZOLAM INJ 2 MG/2 ML VIAL As Ordered ONE; +SERT50TA29 PO; +TRAZ-257 PO
[2024-12-23] MEDS: ceFAZolin SOD 2 GM IV ONCE IV ONE (11:00)
[2024-12-23] MEDS: LIDOCAINE 2% MDV 20 ML VIAL As Ordered ONE (11:08)
[2024-12-23] MEDS ORDERED: CLOP75TA2 PO (11:42)
[2024-12-23] MEDS: GENTAMICIN SULF 80 MG/2 ML VIAL As Ordered ONE (11:48)
[2024-12-23] MEDS: dexAMETHasone 4 MG/ML 1 ML VIAL As Ordered ONE (11:56)
[2024-12-23] MEDS ORDERED: ACETAMINOPHEN 1000MG/100ML IV BAG As Ordered ONE (12:13)
[2024-12-23 13:15] VITALS: BP 120/60; TEMP 98.9; O2SAT 99
== END 2024-12-23 13:25 | disposition home or self-care (01) ==
LOC: M SDC 09:33
PROVIDERS: ATTEND Podiatrist
DX: M20.5X1 Other deformities of toe(s) (acquired), right foot (principal); G47.30 Sleep apnea, unspecified; Z79.899 Other long term (current) drug therapy
CPT/HCPCS: 28289; 73620; 73630; 88300; J0131; J0665; J0690; J1100; J1580; J2250; J3010

== ENCOUNTER → 2025-01-20 | Outpatient (CLI) | payer MEDICARE ==
[~2025-01-20] MED LIST changes: -LIDOCAINE 2% 100 MG/5 ML SDV (FOR ANES.) As Ordered ONE; -MIDAZOLAM INJ 2 MG/2 ML VIAL As Ordered ONE
== END ==
LOC: M WUC 09:50
PROVIDERS: ATTEND Nurse Practitioner Family
DX: M25.541 Pain in joints of right hand (principal); M19.041 Primary osteoarthritis, right hand

== ENCOUNTER → 2025-02-14 | Outpatient (CLI) | payer MEDICARE | LOC: M SOG 06:55 | PROVIDERS: ATTEND Physician Assistant | DX: M79.642 Pain in left hand (principal); Z53.9 Procedure and treatment not carried out, unspecified reason ==